=== PATIENT | female | born 1995 | race Two or more races ===

== ENCOUNTER 2018-10-19 10:05 | Emergency (ER) | payer SELFPAY ==
--- NOTE | 2018-10-19 10:59 | XRAY Report ---
Reason: cough Procedure Date: 10/19/2018 Accession Number: [id number] / [id number] Procedure: XR - Chest 2 View X-Ray CPT Code: 18954 FULL RESULT: EXAM: CHEST RADIOGRAPHY EXAM DATE: 10/19/2018 10:37 AM. CLINICAL HISTORY: Cough. COMPARISON: None. TECHNIQUE: 2 views. FINDINGS: Lungs/Pleura: No focal opacities evident. No pleural effusion. No pneumothorax. Normal volumes. Mediastinum: Heart and mediastinal contours are unremarkable. Other: None. IMPRESSION: Normal 2-view chest radiography. RADIA
[2018-10-19] MEDS: IPRATROPIUM/ALBUTEROL 3 ML NEB INH STA (11:24)
--- NOTE | 2018-10-19 13:31 | ED Physician Documentation ---
PD HPI URI - Stated complaint Stated Complaint: DIFF BREATHING/EAR PX - Chief complaint Chief Complaint: Resp - History obtained from History obtained from: Patient - History of Present Illness Timing - onset: How many days ago (2-3) Timing duration: Days (2) Timing details: Gradual onset, Intermittant Pain level max: 0 Pain level now: 0 Associated symptoms: Nasal congestion, Productive cough. 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 No: Sick contact, Travel, COPD / asthma Improves by: Nothing Worsened by: Other (nothing) Similar symptoms before: Has not had sx before Recently seen: Not recently seen - Additional information Additional information: 23-year-old female with no past medical or surgical history Here with complaint of upper respiratory nasal congestion and cough the past 2-3 days with body aches and left ear pain As it is clogged up.Patient denies any fever, chest pain or shortness of breath. Denies any control pills. Denies any trauma, travel. [facility] work at an [facility] facility where people had been recently diagnosed with pneumonia Review of Systems Ten Systems: 10 systems reviewed and negative Constitutional: reports: Myalgias. denies: Fever, Chills Ears: reports: Ear pain. denies: Drainage/discharge Throat: denies: Sore throat Cardiac: denies: Chest pain / pressure Respiratory: reports: Cough. denies: Dyspnea GI: denies: Abdominal Pain, Nausea, Vomiting, Diarrhea Neurologic: denies: Generalized weakness PD PAST MEDICAL HISTORY - Past Medical History Past Medical History: No Respiratory: None - Past Surgical History Past Surgical History: No - Present Medications Home Medications: Ambulatory Orders Medication Instructions Recorded Confirmed Neomycin/Polymyx/Hc Otic Drops 4 drops LEFTEAR TID 7 Days #1 10/19/18 [Cortisporin Ear Susp] bottle RX: Albuterol Sulf [Ventolin Hfa 1 - 2 puffs INH Q4HR PRN #1 inhaler 10/19/18 Inhaler] - Allergies Allergies/Adverse Reactions: Allergies Allergy/AdvReac Type Severity Reaction Status Date / Time No Known Drug Allergies Allergy Verified 05/16/14 17:00 - Social History Does the pt smoke?: No Smoking Status: Never smoker Does the pt drink ETOH?: No Does the pt have substance abuse?: Yes Substance Use and Type: Marijuana - Immunizations Immunizations are current?: Yes - POLST Patient has POLST: No PD ED PE NORMAL - Vitals Vital signs reviewed: Yes - General General: Alert and oriented X 3, No acute distress, Well developed/nourished - HEENT HEENT: PERRL, Moist mucous membranes, Pharynx benign, Other (Left ear positive tenderness of the tragus And External auditory canal With mild tenderness during exam and TMs intact And without erythema.) - Neck Neck: Supple, no meningeal sign - Cardiac Cardiac: RRR, No murmur - Respiratory Respiratory: No respiratory distress, Other (Few expiratory wheezing.) - Abdomen Abdomen: Normal bowel sounds, Soft, Non tender, Non distended - Derm Derm: Normal color, Warm and dry, No rash - Extremities Extremities: No deformity - Neuro Neuro: Alert and oriented X 3 - Psych Psych: Normal mood, Normal affect Results - Vitals Vitals: Vital Signs - 24 hr 10/19/18 10/19/18 10/19/18 10:10 11:27 14:21 Temperature 37.2 C 37.0 C Heart Rate 88 100 98 Respiratory 16 20 16 Rate Blood Pressure 114/73 118/70 O2 Saturation 100 100 Oxygen O2 Source Room air - Labs Labs: Laboratory Tests 10/19/18 11:19 Influenza A (Rapid) Negative Influenza B (Rapid) Negative PD MEDICAL DECISION MAKING - ED course Complexity details: reviewed results, re-evaluated patient, considered differential (Upper respiratory infection, bronchitis, flu, pneumonia), d/w p atient ED course: 1246 patient states feeling better after 1 duoneb. Lungs clear to auscultation. 1329 finally got the flu test result which was negative. Patient was also inform of test results. Patient wants to go home with a work note to return on Wednesday. We will discharge her on albuterol inhaler and Corticosporin for her left ear. Departure - Departure Disposition: Home, Self Care Clinical Impression: Bronchitis Otitis externa Qualifiers: Otitis externa type: unspecified type Chronicity: acute Laterality: left Qualified Code(s): H60.502 - Unspecified acute noninfective otitis externa, left ear Condition: Stable Instructions: ED Reactive Airway Disease, ED Bronchitis Asthmatic, ED Otitis Externa Ch Prescriptions: RX: Albuterol Sulf [Ventolin Hfa Inhaler] 1 - 2 puffs INH Q4HR PRN #1 inhaler PRN Reason: Shortness Of Air/Wheezing Neomycin/Polymyx/Hc Otic Drops [Cortisporin Ear Susp] 4 drops LEFTEAR TID 7 Days #1 bottle Forms: Activity restrictions Discharge Date/Time: 10/19/18 13:48
[2018-10-19 14:22] VITALS: BP 118/70
== END 2018-10-19 13:48 | disposition home or self-care (01) ==
LOC: ED 10:05
DX: J40 Bronchitis, not specified as acute or chronic (principal); H60.502 Unspecified acute noninfective otitis externa, left ear
CPT/HCPCS: 71046; 87275; 87276; 94640; 94664; 99283

== ENCOUNTER 2019-03-16 19:14 | Emergency (ER) | payer MEDICAID ==
[2019-03-16 19:34] LABS: BILIRUBIN,URINE NEGATIVE (NEGATIVE); GLUCOSE, URINE (UA) NEGATIVE (NEGATIVE); KETONES,URINE (UA) NEGATIVE (NEGATIVE); LEUKOCYTE ESTERASE, URINE NEGATIVE (NEGATIVE); NITRITE,URINE NEGATIVE (NEGATIVE); OCCULT BLOOD,URINE LARGE (NEGATIVE); PROTEIN,URINE NEGATIVE (NEGATIVE); UROBILINOGEN,URINE 1 (NORMAL) E.U./dL (NORMAL)
[2019-03-16 19:36] LABS: CLARITY,URINE CLEAR (CLEAR); HCG UR QUAL NEGATIVE
[2019-03-16 19:47] LABS: BACTERIA,URINE Rare /HPF (None Seen); SQUAMOUS EPITHELIAL CELL,UR MOD Squamous (<= Few)
--- NOTE | 2019-03-16 20:03 | ED Physician Documentation ---
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 No: Travel, Immunocompromised Review of Systems Constitutional: reports: Fever, Chills, Myalgias Nose: reports: Congestion Throat: reports: Sore throat Cardiac: denies: Chest pain / pressure Respiratory: reports: Cough. denies: Dyspnea GI: reports: Nausea, Diarrhea. 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 - Present Medications Home Medications: Ambulatory Orders Medication Instructions Recorded Confirmed Benzonatate [Tessalon Perle] 100 mg PO TID PRN #25 capsule 03/16/19 Dexamethasone [Decadron] 4 mg PO DAILY #5 tablet 03/16/19 Ondansetron Odt [Zofran] 4 mg TL Q6H PRN #15 tablet 03/16/19 - Allergies Allergies/Adverse Reactions: Allergies Allergy/AdvReac Type Severity Reaction Status Date / Time No Known Drug Allergies Allergy Verified 03/16/19 19:22 - Social History Does the pt smoke?: No Smoking Status: Never smoker Does the pt drink ETOH?: No Does the pt have substance abuse?: Yes Substance Use and Type: Marijuana - Immunizations Immunizations are current?: Yes - POLST Patient has POLST: No PD ED PE NORMAL - Vitals Vital signs reviewed: Yes - General General: Alert and oriented X 3, Well developed/nourished - HEENT HEENT: Ears normal, Moist mucous membranes, Pharynx benign - Neck Neck: Supple, no meningeal sign, No adenopathy - Cardiac Cardiac: RRR, No murmur - Respiratory Respiratory: Clear bilaterally - Abdomen Abdomen: Soft, Non tender - Derm Derm: Normal color, Warm and dry, No rash - Neuro Neuro: Alert and oriented X 3, No motor deficit, Normal speech Results - Vitals Vitals: Vital Signs - 24 hr 03/16/19 03/16/19 03/16/19 19:17 19:46 20:58 Temperature 37.8 C H 39.6 C H 39.5 C H Heart Rate 131 H 135 H 121 H Respiratory 16 19 12 Rate Blood Pressure 132/81 H 131/88 H 127/85 H O2 Saturation 99 98 97 Oxygen O2 Source Room air - Labs Labs: Laboratory Tests 03/16/19 03/16/19 19:25 20:20 Urine Color YELLOW Urine Clarity CLEAR Urine pH 8.0 H Ur Specific [place] 1.015 Urine Protein NEGATIVE Urine Glucose (UA) NEGATIVE Urine Ketones NEGATIVE Urine Occult Blood LARGE H Urine Nitrite NEGATIVE Urine Bilirubin NEGATIVE Urine Urobilinogen 1 (NORMAL) Ur Leukocyte Esterase NEGATIVE Urine RBC 6-10 H Urine WBC 0-3 Ur Squamous Epith Cells MOD Squamous H Urine Bacteria Rare Ur Microscopic Review INDICATED Urine Culture Comments NOT INDICATED Urine HCG, Qual NEGATIVE Influenza A (Rapid) Negative Influenza B (Rapid) Negative PD MEDICAL DECISION MAKING - ED course Complexity details: considered differential, d/w patient Departure - Departure Disposition: 01 Home, Self Care Clinical Impression: Flu-like symptoms URI (upper respiratory infection) Qualifiers: URI type: unspecified URI Qualified Code(s): J06.9 - Acute upper respiratory infection, unspecified Condition: Stable Record reviewed to determine appropriate education?: Yes Instructions: ED Upper Resp Infec No Abx Tx Prescriptions: Benzonatate [Tessalon Perle] 100 mg PO TID PRN #25 capsule PRN Reason: Cough Dexamethasone [Decadron] 4 mg PO DAILY #5 tablet Ondansetron Odt [Zofran] 4 mg TL Q6H PRN #15 tablet PRN Reason: Nausea / Vomiting Comments: Your flu test is negative. However it still could be the flu since the test is not completely accurate. Can also be some other viral type illness. I do not see signs of a bacterial infection so I do not believe antibiotics will be helpful. Stay well-hydrated. Likely illness would be 5 to 7 days even up to 10 days. Use ondansetron if needed for nausea. Decadron steroid anti-inflammatory will help with some of the general soreness and aches. Tessalon can help with the cough. Use Tylenol and/or ibuprofen for fevers and aches. Recheck if still not im proving over the next 2 to 3 days and return to return if worsening symptoms particularly worsening cough or trouble breathing. Forms: Activity restrictions Discharge Date/Time: 03/16/19 21:00
[2019-03-16] MEDS ORDERED: ACETAMINOPHEN 500 MG TABLET PO STA (20:15)
[2019-03-16] MEDS ORDERED: DEXAMETHASONE 10 MG/ML VIAL PO STA (20:15)
[2019-03-16] MEDS ORDERED: ONDANSETRON ODT 4 MG TABLET TL STA (20:15)
[2019-03-16] MEDS ORDERED: CHERRY SYRUP 10 ML UDC PO ONE (20:15)
[2019-03-16] MEDS ORDERED: BENZONATATE 100 MG CAPSULE PO STA (20:15)
[2019-03-16] MEDS ORDERED: ONDANSETRON ODT 4 MG Prepack 2 TL PRN (20:47)
[2019-03-16 20:59] VITALS: BP 127/85
== END 2019-03-16 21:00 | disposition home or self-care (01) ==
LOC: ED 19:14
DX: J06.9 Acute upper respiratory infection, unspecified (principal)
CPT/HCPCS: 81001; 81025; 87275; 87276; 99283; A9270; Q0162; 81003; 87086

== ENCOUNTER 2021-01-03 10:49 | Emergency (ER) | payer MEDICAID, OTHER ==
[2021-01-03 10:56] VITALS: BP 112/58
--- NOTE | 2021-01-03 11:14 | ED Physician Documentation ---
PD HPI ABD PAIN - Stated complaint Stated Complaint: ABD PX - Chief complaint Chief Complaint: Abd Pain - History obtained from History obtained from: Patient - History of Present Illness Timing - onset: How many days ago (few) Timing - duration: Days (few) Timing - details: Gradual onset (she has had few days of progressive redness, swelling, tenderness left inguinal area without drainage.), Still present Quality: Aching, Pain (with tenderness in left inguinal area.) Location: Other (left inguinal area) Radiation: No: Lower back Improved by: Laying still Worsened by: Moving, Palpation Associated symptoms: No: Fever, Nausea, Vomiting, Dysuria, Hematuria Similar symptoms before: No diagnosis (has had similar couple times in the past, with resolution after few days using heat packs. No chronic lesions/tenderness. She thought it might be hernia, since tender lump.) Recently seen: Not recently seen Review of Systems Constitutional: denies: Fever, Chills : denies: Dysuria, Discharge Skin: reports: Rash (she does shave pubic area and has had some small red spots after at times.). 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 - Present Medications Home Medications: Ambulatory Orders Medication Instructions Recorded Confirmed Chlorhexidine Gluconate [Hibiclens] 10 ml TP DAILY #236 ml 01/03/21 Ibuprofen [Motrin] 600 mg PO TID PRN #25 tab 01/03/21 Sulfamethox/Trimeth 800/160 1 each PO BID #14 tablet 01/03/21 [Bactrim Ds 800/160] - Allergies Allergies/Adverse Reactions: Allergies Allergy/AdvReac Type Severity Reaction Status Date / Time No Known Drug Allergies Allergy Verified 01/03/21 10:56 - Social History Does the pt smoke?: No Smoking Status: Never smoker Does the pt drink ETOH?: No Does the pt have substance abuse?: Yes - Immunizations Immunizations are current?: Yes - POLST Patient has POLST: No PD ED PE NORMAL - Vitals Vital signs reviewed: Yes - General General: Alert and oriented X 3, No acute distress, Well developed/nourished - Abdomen Abdomen: Soft, Non tender - Female Female : Deferred, Other (pelvic not done. Just examined the left inguinal area which shows local area of redness, swelling, tenderness. Bedside U/S showing inflammation and small 2-3 mm area of fluid, c/w small abscess. This is at edge of area of shaving, so presume started as "razor burn" infection. ) - Rectal Rectal: Deferred - Back Back: No CVA TTP Results - Vitals Vitals: Vital Signs - 24 hr 01/03/21 10:53 Temperature 36.2 C L Heart Rate 76 Respiratory 16 Rate Blood Pressure 112/58 L O2 Saturation 100 Oxygen O2 Source Room air - Labs Labs: Laboratory Tests 01/03/21 11:12 Urine Color YELLOW Urine Clarity CLEAR Urine pH 8.5 H Ur Specific [place] 1.015 Urine Protein NEGATIVE Urine Glucose (UA) NEGATIVE Urine Ketones NEGATIVE Urine Occult Blood TRACE-INTA Urine Nitrite NEGATIVE Urine Bilirubin NEGATIVE Urine Urobilinogen 0.2 (NORMAL) Ur Leukocyte Esterase NEGATIVE Ur Microscopic Review NOT INDICATED Urine Culture Comments NOT INDICATED Urine HCG, Qual NEGATIVE PD MEDICAL DECISION MAKING - ED course Complexity details: considered differential (local skin infection, early abscess, too small to need I&D as yet. ), d/w patient Departure - Departure Disposition: 01 Home, Self Care Clinical Impression: Soft tissue abscess of inguinal region Condition: Stable Record reviewed to determine appropriate education?: Yes Instructions: ED Stap Infec Abx Tx Only Follow-Up: [facility] [Provider Group] Prescriptions: Sulfamethox/Trimeth 800/160 [Bactrim Ds 800/160] 1 each PO BID #14 tablet Chlorhexidine Gluconate [Hibiclens] 10 ml TP DAILY #236 ml Ibuprofen [Motrin] 600 mg PO TID PRN #25 tab PRN Reason: Pain Comments: This appears to be a localized soft tissue infection/early abscess. Use warm moist compresses or soaks to the area to improve blood flow and help fight the infection. Chlorhexidine topical antiseptic with your shower daily cleansing to the area. Bactrim antibiotic twice daily for the next week. Ibuprofen 3 times a day for the next several days to week. Add Tylenol to that if needed for pains. Recheck if not improved well over the next 2 to 3 days return sooner if worsening. At this point it is small enough to not need incision and drainage and should improve with just antibiotics and local care, but occasionally the antibiotics will not improve it enough and the fluid pocket increases and subsequently needs drainage. This would be infrequent. Discharge Date/Time: 01/03/21 11:49
[2021-01-03 11:23] LABS: BILIRUBIN,URINE NEGATIVE (NEGATIVE); CLARITY,URINE CLEAR (CLEAR); GLUCOSE, URINE (UA) NEGATIVE (NEGATIVE); KETONES,URINE (UA) NEGATIVE (NEGATIVE); LEUKOCYTE ESTERASE, URINE NEGATIVE (NEGATIVE); NITRITE,URINE NEGATIVE (NEGATIVE); OCCULT BLOOD,URINE TRACE-INTA (NEGATIVE); PH,URINE 8.5 PH (5.0-7.5); PROTEIN,URINE NEGATIVE (NEGATIVE); UROBILINOGEN,URINE 0.2 (NORMAL) E.U./dL (NORMAL)
[2021-01-03 11:25] LABS: HCG UR QUAL NEGATIVE
[2021-01-03] MEDS ORDERED: IBUPROFEN 600 MG TABLET PO STA (11:37)
[2021-01-03] MEDS ORDERED: ACETAMINOPHEN 325 MG TABLET PO STA (11:37)
[2021-01-03] MEDS ORDERED: SULFAMETH/TRIMETH DS 800/160 MG TABLET PO STA (11:37)
== END 2021-01-03 11:49 | disposition home or self-care (01) ==
LOC: ED 10:49
DX: L02.214 Cutaneous abscess of groin (principal)
CPT/HCPCS: 81003; 81025; 99283; 99284; A9270; 81001; 87086

== ENCOUNTER 2021-11-02 16:37 | Outpatient (CLI) | payer OTHER ==
--- NOTE | 2021-11-03 01:29 | Ultrasound Report ---
PROCEDURE: Pelvic w/Transvaginal INDICATIONS: DYSMENORRHEA TECHNIQUE: Real-time scanning was performed of the pelvic organs, with image documentation. Additional endovagi nal scanning was necessary due to incomplete visualization of the adnexal and endometrial structures by transabdominal scanning. COMPARISON: None. FINDINGS: Uterus: The uterus is anteverted and measures 8.6 x 4.5 x 6.5 cm. Endometrium measures up to 1.3 cm. No internal vascularity within the endometrium on Doppler interrogation. Ovaries: The right ovary measures 4.0 x 1.9 x 2.6 cm with a volume of 10 mL. The left ovary measures 4.6 x 3.0 x 3.0 cm with a volume of 21 mL. There is a thick-walled cyst in the left ovary measuring up to 2.4 x 1.9 x 2.1 cm likely representing an involuting physiologic cyst. There is a small amount of free fluid in the pelvic cul-de-sac and in the bilateral adnexa which appe ar within physiologic limits. IMPRESSION: 1. Thick-walled cyst in the left ovary likely represent an involuting physiologic cyst. 2. No acute sonographic abnormality identified in the pelvis. Reviewed by: Mason Garcia MD on 11/03/2021 1:28 AM PST Approved by: Mason Garcia MD on 11/03/2021 1:28 AM PST Station ID: [id number]
== END 2021-11-02 16:38 | disposition home or self-care (01) ==
LOC: DI 16:37
PROVIDERS: ATTEND Physician Assistant
DX: N83.292 Other ovarian cyst, left side (principal); N94.6 Dysmenorrhea, unspecified

== ENCOUNTER 2021-11-21 08:00 | Outpatient (CLI) | payer OTHER ==
[2021-11-21 17:17] LABS: BILIRUBIN,URINE NEGATIVE (NEGATIVE); GLUCOSE, URINE (UA) NEGATIVE (NEGATIVE); KETONES,URINE (UA) NEGATIVE (NEGATIVE); LEUKOCYTE ESTERASE, URINE NEGATIVE (NEGATIVE); NITRITE,URINE NEGATIVE (NEGATIVE); OCCULT BLOOD,URINE TRACE-INTA (NEGATIVE); PH,URINE 7.5 PH (5.0-7.5); PROTEIN,URINE NEGATIVE (NEGATIVE); UROBILINOGEN,URINE 0.2 (NORMAL) E.U./dL (NORMAL)
[2021-11-21 17:21] LABS: CLARITY,URINE CLEAR (CLEAR)
[2021-11-21 17:31] LABS: AMORPHOUS SEDIMENT,UR Few /LPF; BACTERIA,URINE Rare /HPF (None Seen); RBC,URINE 0-5 /HPF (0-5); SQUAMOUS EPITHELIAL CELL,UR NONE SEEN (<= Few); WBC,URINE 0-3 /HPF (0-5)
== END 2021-11-21 23:59 | disposition home or self-care (01) ==
LOC: LAB.WC 08:00
PROVIDERS: ATTEND Obstetrics & Gynecology
DX: Z32.01 Encounter for pregnancy test, result positive (principal)
CPT/HCPCS: 81001; 87086

== ENCOUNTER 2021-12-14 08:11 | Outpatient (CLI) | payer OTHER ==
--- NOTE | 2021-12-14 11:08 | Ultrasound Report ---
PROCEDURE: OB First Trimester w/TV INDICATIONS: POSITIVE TEST OUTSIDE/PRIOR DATING DATA: Last menstrual period (LMP): 10/10/2021. LMP-based estimated date of delivery (TAYLER): 07/17/2022. First dating scan (date and location): 12/14/2021. TECHNIQUE: Real-time scanning was performed of the fetus and maternal pelvic organs, with image documentation. COMPARISON: None FINDINGS: Normal uterine size. Endometrial thickness is approximately 1.5 cm. Single intrauterine gestational sac noted without internal contents appear gestational sac size would correspond to a 6 week 1 day gestation. Adjacent subchorionic bleed measures 2.5 x 1.3 x 2.3 cm. Both ovaries are visualized without adnexal mass. 2.9 x 2.1 cm complex left ovarian cyst, likely azam us luteum cyst. No free fluid. IMPRESSION: 1. Single intrauterine gestational sac without pole or yolk sac. Differential considerations in clude normal early , blighted ovum and less likely pseudosac with nonvisualized ectopic preg cole. 2. Perigestational bleed 2.5 x 1.3 cm 3. Left ovarian corpus luteum cyst Reviewed by: Tyler Rodríguez MD on 12/14/2021 10:06 AM [facility] Approved by: Tyler Rodríguez MD on 12/14/2021 10:06 AM [facility] Station ID: [id number]
== END 2021-12-14 08:12 | disposition home or self-care (01) ==
LOC: DI 08:11
PROVIDERS: ATTEND Obstetrics & Gynecology
DX: O20.8 Other hemorrhage in early pregnancy (principal); O34.81 Maternal care for other abnormalities of pelvic organs, first trimester; N83.12 Corpus luteum cyst of left ovary; Z3A.01 Less than 8 weeks gestation of pregnancy; Z37.9 Outcome of delivery, unspecified

== ENCOUNTER 2021-12-26 15:39 | Emergency (ER) | payer OTHER, MEDICAID ==
[2021-12-26] MEDS ORDERED: HYDROcod/ACETAM 5/325 MG TABLET PO STA (16:04)
--- NOTE | 2021-12-26 16:04 | ED Physician Documentation ---
PD HPI ABD PAIN - Stated complaint Stated Complaint: SPOTTING,CRAMPS,ABD PX - Chief complaint Chief Complaint: Abd Pain - History obtained from History obtained from: Patient - Additional information Additional information: A1 with LMP Oct 10, but had sono 12/14 c/w ? early preg vs blighted ovum and perigestational hemorrhage with spotting starting 5 days ago but v heavy bleeding / cramping this AM. 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 - Present Medications Home Medications: Ambulatory Orders Medication Instructions Recorded Confirmed Chlorhexidine Gluconate [Hibiclens] 10 ml TP DAILY #236 ml 01/03/21 Ibuprofen [Motrin] 600 mg PO TID PRN #25 tab 01/03/21 Sulfamethox/Trimeth 800/160 1 each PO BID #14 tablet 01/03/21 [Bactrim Ds 800/160] - Allergies Allergies/Adverse Reactions: Allergies Allergy/AdvReac Type Severity Reaction Status Date / Time No Known Drug Allergies Allergy Verified 12/26/21 15:50 - Social History Does the pt smoke?: No Smoking Status: Never smoker Does the pt drink ETOH?: No Does the pt have substance abuse?: Yes - Immunizations Immunizations are current?: Yes - POLST Patient has POLST: No PD ED PE NORMAL - Vitals Vital signs reviewed: Yes - General General: Alert and oriented X 3, No acute distress - Abdomen Abdomen: Normal bowel sounds, Soft, Non tender, Other (Bedside sono with hetorgenous material in the endometrium, ? c/w blood/clot. 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 No active bleeding after removal of PPOC.) - Neuro Neuro: Alert and oriented X 3, Normal speech - Psych Psych: Normal mood, Normal affect Results - Vitals Vitals: Vital Signs - 24 hr 12/26/21 12/26/21 12/26/21 15:45 16:11 16:37 Temperature 36.2 C L Heart Rate 82 78 64 Respiratory 16 18 18 Rate Blood Pressure 96/58 L 106/65 118/76 O2 Saturation 100 100 100 Oxygen O2 Source Room air - Labs Labs: Laboratory Tests 12/26/21 12/26/21 12/26/21 16:06 16:06 16:06 WBC 14.7 H RBC 3.70 L Hgb 11.3 L Hct 34.6 L MCV 93.5 MCH 30.5 MCHC 32.7 RDW 12.3 Plt Count 165 MPV 11.2 H Neut # (Auto) 12.1 H Lymph # (Auto) 1.6 [place] # (Auto) 0.6 Eos # (Auto) 0.3 Baso # (Auto) 0.1 Absolute Nucleated RBC 0.00 Nucleated RBC % 0.0 Sodium 134 L Potassium 3.5 Chloride 102 Carbon Dioxide 26 Anion Gap 6.0 BUN 9 Creatinine 0.6 Estimated GFR (MDRD) 122 Glucose 142 H Calcium 8.8 Blood Type O POSITIVE PD MEDICAL DECISION MAKING - ED course ED course: 26 yo A1 with miscarriage in process and cramping/bleeding d/t POC in cervix removed with benavides forceps at bedside and sent for path. Departure - Departure Disposition: 01 Home, Self Care Clinical Impression: Miscarriage Condition: Good Record reviewed to determine appropriate education?: Yes Instructions: Miscarriage Dc Follow-Up: Patrice Wellington MD [Provider Admit Priv/Credential] - Comments: Followup with Dr Wellington next week. Let him know we sent products of conception for pathology. Return if worse or not improving over the next few hours.
[2021-12-26 16:13] LABS: BASOPHILS # (AUTO) 0.1 10^3/uL (0.0-0.1); BASOPHILS % (AUTO) 0.5 %; EOSINOPHILS # (AUTO) 0.3 10^3/uL (0.0-0.7); HCT - HEMATOCRIT 34.6 % (37.0-47.0); HGB - HEMOGLOBIN 11.3 g/dL (12.0-16.0); LYMPHOCYTES # (AUTO) 1.6 10^3/uL (1.5-3.5); LYMPHOCYTES % (AUTO) 10.6 %; MEAN CORPUSCULAR HEMOGLOBIN 30.5 pg (27.0-31.0); MEAN CORPUSCULAR HGB CONC 32.7 g/dL (32.0-36.0); MEAN CORPUSCULAR VOLUME 93.5 fL (81.0-99.0); MEAN PLATELET VOLUME 11.2 fL (7.9-10.8); MONOCYTES # (AUTO) 0.6 10^3/uL (0.0-1.0); MONOCYTES % (AUTO) 4.2 %; NEUTROPHILS # (AUTO) 12.1 10^3/uL (1.5-6.6); NEUTROPHILS % (AUTO) 82.3 %; PLT - PLATELET COUNT 165 10^3/uL (130-450); RED CELL DISTRIBUTION WIDTH 12.3 % (12.0-15.0); WHITE BLOOD COUNT 14.7 x10^3/uL (4.8-10.8)
[2021-12-26 16:23] LABS: CALCIUM 8.8 mg/dL (8.5-10.3); CREATININE 0.6 mg/dL (0.4-1.0); POTASSIUM 3.5 mmol/L (3.5-5.0)
[2021-12-26 16:38] VITALS: BP 118/76
== END 2021-12-26 16:46 | disposition home or self-care (01) ==
LOC: ED 15:39
DX: O03.9 Complete or unspecified spontaneous abortion without complication (principal)
CPT/HCPCS: 36415; 80048; 84702; 85025; 86900; 86901; 99282; 99283; A9270

== ENCOUNTER 2022-01-06 06:50 | Outpatient (CLI) | payer OTHER, MEDICAID ==
--- NOTE | 2022-01-06 08:33 | Ultrasound Report ---
PROCEDURE: OB First Trimester w/TV INDICATIONS: TEST POSITIVE OUTSIDE/PRIOR DATING DATA: Last menstrual period (LMP): 10/20/2021. LMP-based estimated date of delivery (TAYLER): 07/17/2022. First dating scan (date and location): 12/14/2021. Estimated date of delivery (TAYLER) from first dating scan: Not applicable. TECHNIQUE: Real-time scanning was performed of the fetus and maternal pelvic organs, with image documentation. Endovaginal scanning was also performed to better visualize the fetus and maternal ovaries. COMPARISON: 12/14/2021 FINDINGS: Embryo: No intrauterine gestational sac or pole is seen. Heterogeneously hypoechoic structure within endometrium measures 1.9 x 1.8 x 1.1 cm in size is seen with suggestion of internal vascularit y. Heart rate: No heart rate is identified. Maternal organs: Bilateral ovaries are visualized and are within normal limits. IMPRESSION: 1. No evidence of intrauterine gestation. 1.9 x 1.8 x 1.1 cm heterogeneously hypoechoic structure wit hin endometrium and is suggestive of retained products. 2. Normal-appearing bilateral ovaries. Reviewed by: Valdo Weller MD on 01/06/2022 8:31 AM PST Approved by: Valdo Weller MD on 01/06/2022 8:31 AM PST Station ID: [id number]
== END 2022-01-06 06:51 | disposition home or self-care (01) ==
LOC: DI 06:50
PROVIDERS: ATTEND Obstetrics & Gynecology
DX: Z32.01 Encounter for pregnancy test, result positive (principal); N93.9 Abnormal uterine and vaginal bleeding, unspecified
CPT/HCPCS: 36415; 84702

== ENCOUNTER 2022-01-06 17:38 | Outpatient (CLI) | payer OTHER, MEDICAID | END 2022-01-06 17:39 | disposition home or self-care (01) | LOC: LAB.N 17:38 | PROVIDERS: ATTEND Obstetrics & Gynecology | DX: N93.9 Abnormal uterine and vaginal bleeding, unspecified (principal) | CPT/HCPCS: 36415; 84702 ==

== ENCOUNTER 2022-01-14 18:27 | Outpatient (CLI) | payer OTHER | END 2022-01-14 18:28 | disposition home or self-care (01) | LOC: LAB.N 18:27 | PROVIDERS: ATTEND Obstetrics & Gynecology | DX: O03.9 Complete or unspecified spontaneous abortion without complication (principal) | CPT/HCPCS: 36415; 84702 ==

== ENCOUNTER 2022-01-20 16:55 | Outpatient (CLI) | payer OTHER | END 2022-01-20 16:56 | disposition home or self-care (01) | LOC: LAB.N 16:55 | PROVIDERS: ATTEND Obstetrics & Gynecology | DX: N93.9 Abnormal uterine and vaginal bleeding, unspecified (principal) | CPT/HCPCS: 36415; 84702; 86900; 86901 ==

== ENCOUNTER 2022-01-27 17:33 | Outpatient (CLI) | payer OTHER, MEDICAID | END 2022-01-27 17:34 | disposition home or self-care (01) | LOC: LAB.N 17:33 | PROVIDERS: ATTEND Obstetrics & Gynecology | DX: Z53.9 Procedure and treatment not carried out, unspecified reason (principal) | CPT/HCPCS: 86900; 86901 ==

== ENCOUNTER 2022-01-28 12:18 | Outpatient (CLI) | payer OTHER, MEDICAID | END 2022-01-28 12:19 | disposition home or self-care (01) | LOC: LAB 12:18 | PROVIDERS: ATTEND Obstetrics & Gynecology | DX: O03.9 Complete or unspecified spontaneous abortion without complication (principal) | CPT/HCPCS: 36415; 84702 ==